=== PATIENT | male | born 1985 | race African-American/Black ===

== ENCOUNTER → 2017-05-27 12:15 | Outpatient (CLI) | payer MEDICAID | END | disposition home or self-care (01) | LOC: D.RAD 12:15 | DX: M54.6 Pain in thoracic spine (principal) ==

== ENCOUNTER 2019-09-18 16:42 | Emergency (ER) | payer SELFPAY | END 2019-09-18 17:17 | disposition home or self-care (01) | LOC: D.ER 16:42 | DX: Z76.5 Malingerer [conscious simulation] (principal); R10.9 Unspecified abdominal pain ==